=== PATIENT | female | born 2005 | race African-American/Black ===

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

== ENCOUNTER 2024-04-04 14:47 | Emergency (ER) | payer OTHER ==
[2024-04-04 14:54] VITALS: BP 124/77; PULSE 78; RESP 16; TEMP 98.7; BMI 21.4
== END 2024-04-04 15:18 | disposition home or self-care (01) ==
LOC: JERFT 14:47
DX: R21 Rash and other nonspecific skin eruption (principal); L29.9 Pruritus, unspecified
CPT/HCPCS: 99282-25

== ENCOUNTER 2024-09-22 13:17 | Emergency (ER) | payer OTHER ==
[2024-09-22 13:24] VITALS: BP 123/84; PULSE 77; RESP 18; TEMP 98.2; BMI 22.1
== END 2024-09-22 14:24 | disposition home or self-care (01) ==
LOC: JERFT 13:17 → JER 13:17 → JERFT 14:24
DX: L60.8 Other nail disorders (principal)
CPT/HCPCS: 99283-25